=== PATIENT | female | born 2005 | race Caucasian/White ===

== ENCOUNTER → 2024-11-14 | Outpatient (REF) | LOC: M EMP 09:20 | PROVIDERS: ATTEND Family Medicine | DX: Z11.52 Encounter for screening for COVID-19 (principal) ==

== ENCOUNTER → 2025-05-23 | Outpatient (CLI) | payer OTHER ==
[~2025-05-23] MED LIST: PRENTAB9 PO
== END ==
LOC: M RAD 09:40
PROVIDERS: ATTEND Obstetrics & Gynecology
DX: Z34.82 Encounter for supervision of other normal pregnancy, second trimester (principal); Z3A.20 20 weeks gestation of pregnancy

== ENCOUNTER 2025-05-27 21:50 | Outpatient (CLI) | payer OTHER ==
[~2025-05-27] VITALS: Ht 167.6 cm; Wt 60.1 kg
[2025-05-27] MEDS ORDERED: PRENTAB9 PO (22:03)
[2025-05-27 22:12] VITALS: BP 102/59
== END 2025-05-27 23:08 | disposition home or self-care (01) ==
LOC: M LDO 21:50
PROVIDERS: ATTEND Specialist
DX: O26.852 Spotting complicating pregnancy, second trimester (principal); Z3A.20 20 weeks gestation of pregnancy
CPT/HCPCS: 76815; G0463

== ENCOUNTER → 2025-07-03 | Outpatient (CLI) | payer OTHER ==
[2025-07-03 14:59] LABS: PLATELET COUNT, AUTOMATED 251 10^3/uL (150-450)
[2025-07-03 15:33] LABS: GLUCOSE CHALLENGE TEST 1 HOUR 100 MG/DL (LESS THAN 140)
[2025-07-03 16:27] LABS: Trichomonas vaginalis (AMP) NOT DETECTED (NEGATIVE)
[2025-07-03 16:28] LABS: HIV 1&2 SCREEN NEGATIVE (NEGATIVE)
[2025-07-03 16:36] LABS: HEPATITIS C VIRUS ABY INDEX < 0.02 INDEX (<0.8)
[2025-07-03 16:51] LABS: GC DNA AMPLIFICATION NEGATIVE (NEGATIVE)
== END ==
LOC: M PLALAB 10:41
PROVIDERS: ATTEND Nurse Practitioner Family
DX: Z34.80 Encounter for supervision of other normal pregnancy, unspecified trimester (principal)

== ENCOUNTER → 2025-07-30 | Outpatient (CLI) | payer OTHER ==
[2025-07-30 15:07] LABS: PLATELET COUNT, AUTOMATED 280 10^3/uL (150-450)
[2025-07-30 15:12] LABS: IRON (FE) 60.0 UG/DL (50-170)
== END ==
LOC: M PLALAB 09:52
PROVIDERS: ATTEND Nurse Practitioner Family
DX: R42 Dizziness and giddiness (principal)

== ENCOUNTER → 2025-09-10 | Outpatient (REF) | payer OTHER | LOC: M SFHCWAGY 12:40 | PROVIDERS: ATTEND Nurse Practitioner Family | DX: Z36.85 Encounter for antenatal screening for Streptococcus B (principal); Z3A.36 36 weeks gestation of pregnancy ==